=== PATIENT | female | born 1975 | race Caucasian/White ===

== ENCOUNTER 2021-05-11 07:30 | Observation (INO) | payer BC ==
[2021-05-11] MEDS ORDERED: ASPIRIN 81 MG PO STA (07:59)
[2021-05-11 08:00] LABS: Basophils # (A) 0.1 k/uL (0-0.2); Basophils % (A) 1 %; Eosinophils # (A) 0.1 k/uL (0-0.7); Eosinophils % (A) 2 %; HCT 43.4 % (34.0-46.0); HGB 14.5 gm/dL (11.4-16.0); Lymphocytes # (A) 2.1 k/uL (1.0-4.8); Lymphocytes % (A) 32 %; MCH 30.4 pg (25.0-35.0); MCHC 33.4 g/dL (31.0-37.0); MCV 91.1 fL (80.0-100.0); Mean Platelet Volume 7.9; Monocytes # (A) 0.5 k/uL (0-1.0); Monocytes % (A) 7 %; Neutrophils # (A) 3.8 k/uL (1.3-7.7); Neutrophils % (A) 56 %; Platelet Count 256 k/uL (150-450); RBC 4.77 m/uL (3.80-5.40); RDW 13.4 % (11.5-15.5); WBC 6.7 k/uL (3.8-10.6)
--- NOTE | 2021-05-11 08:04 | ED ---
Chest Pain HPI - General Chief Complaint: Chest Pain Stated Complaint: Chest pain Time Seen by Provider: 05/11/21 07:47 Source: patient, RN notes reviewed Mode of arrival: wheelchair Limitations: no limitations - History of Present Illness Initial Comments: This is a 45-year-old female with no prior history of heart disease but does have a history of asthma and is currently smoker who states she had an onset this morning while at work retrosternal chest pain with some right arm hand and leg numbness. He was associated nausea and sweats with it. She states pain was pressure like 5-6/10 in severity and lasted approximately 3 minutes. She states she was walking at her job at the time. She also relates that over the past several months she's had intermittent random episodes similar to this. She currently is symptom free she does states that she has had intermittent swelling to her right lower extremity none at this time. She also states she has strong family history of heart disease with members having heart issues starting at age 49 and 50. No other current complaints or modifying factors MD Complaint: chest pain - Related Data Home Medications Medication Instructions Recorded Confirmed Albuterol Inhaler (Mhu) [Ventolin 2 inhaler INHALATION DAILY PRN 03/20/14 11/23/15 Hfa Inhaler (Mhu)] Multivitamins, Thera [Multivitamin] 1 tab PO DAILY 03/20/14 11/23/15 Previous Rx's Medication Instructions Recorded Ibuprofen [Motrin] 800 mg PO Q6HR PRN #15 tab 03/20/14 Cefdinir [Omnicef] 300 mg PO Q12HR #14 capsule 11/23/15 Ibuprofen [Motrin] 600 mg PO Q8HR PRN #12 tab 11/23/15 Loratadine [Claritin] 10 mg PO DAILY #7 tab 11/23/15 Allergies Allergy/AdvReac Type Severity Reaction Status Date / Time Penicillins Allergy Unknown Verified 05/11/21 07:31 Sulfa (Sulfonamide Allergy Unknown Verified 05/11/21 07:31 Antibiotics) Review of Systems ROS Statement: Those systems with pertinent positive or pertinent negative responses have been documented in the HPI. ROS Other: All systems not noted in ROS Statement are negative. EKG Findings - EKG Results: EKG: interpreted by YENNIFER, WNL, sinus rhythm, normal axis, normal ST/T, no acute changes (Normal sinus rhythm of 82 OH interval 144 QRS duration 82 QT/QTC 42/469) Past Medical History Past Medical History: Asthma Additional Past Medical History / Comment(s): Depression History of Any Multi-Drug Resistant Organisms: None Reported Past Surgical History: Ear Surgery, Orthopedic Surgery, Tubal Ligation Additional Past Surgical History / Comment(s): KNEE SURGERY Past Psychological History: Anxiety, Depression Smoking Status: Current every day smoker Past Alcohol Use History: Occasional Past Drug Use History: None Reported General Exam - General Exam Comments Initial Comments: This is a well-developed well-nourished awake alert oriented 3 female Limitations: no limitations General appearance: alert, anxious Head exam: Present: atraumatic, normocephalic, normal inspection Eye exam: Present: normal appearance, PERRL, EOMI. Absent: scleral icterus, conjunctival injection, periorbital swelling ENT exam: Present: normal exam, mucous membranes moist Neck exam: Present: normal inspection, full ROM, other (Urjuniorbruits). Absent: tenderness, meningismus, lymphadenopathy Respiratory exam: Present: normal lung sounds bilaterally, chest wall tenderness (I'll tenderness on the right costal sternal margin no step-off no crepitation this does not reproduce the patient's stated discomfort). Absent: respiratory distress, wheezes, rales, rhonchi, stridor Cardiovascular Exam: Present: regular rate, normal rhythm, normal heart sounds. Absent: systolic murmur, diastolic murmur, rubs, gallop, clicks GI/Abdominal exam: Present: soft, normal bowel sounds. Absent: distended, tenderness, guarding, rebound, rigid, bruit Extremities exam: Present: normal inspection, full ROM, normal capillary refill. Absent: tenderness, pedal edema, joint swelling, calf tenderness Back exam: Present: normal inspection Neurological exam: Present: alert, oriented X3, CN II-XII intact Psychiatric exam: Present: normal affect, normal mood Skin exam: Present: warm, dry, intact, normal color. Absent: rash Course Vital Signs 05/11/21 07:31 Temperature 98.6 F Pulse Rate 98 Respiratory 16 Rate Blood Pressure 131/92 O2 Sat by Pulse 99 Oximetry Chest Pain MDM - MDM Imaging reviewed evidence of possible early infiltrate however the patient has no symptoms no fever chills sweats cough and the x-ray did appear to be a poor inspiratory effort. Did discuss case the patient is also with Dr. gauthier patient be admitted for cardiology evaluation. Currently she is pain-free Disposition Clinical Impression: Chest pain, Unstable angina pectoris Disposition: ADMITTED IP TO THIS HOSP Condition: Stable Referrals: None,Stated [Primary Care Provider] - 1-2 days
[2021-05-11 08:12] LABS: INR 0.9 (<1.2); Partial Thromboplastin Time 23.7 sec (22.0-30.0); Prothrombin Time 9.9 sec (9.0-12.0)
[2021-05-11 08:16] LABS: ALT 15 U/L (4-34); AST 21 U/L (14-36); African American GFR (CKD) >90 (>60 ml/min/1.73 sqM); Albumin 4.3 g/dL (3.5-5.0); Alkaline Phosphatase 56 U/L (38-126); Anion Gap 8 mmol/L; Blood Urea Nitrogen 10 mg/dL (7-17); Calcium 9.3 mg/dL (8.4-10.2); Carbon Dioxide 26 mmol/L (22-30); Chloride 106 mmol/L (98-107); Creatine Kinase 81 U/L (30-135); Glucose 105 mg/dL (74-99); Magnesium 2.1 mg/dL (1.6-2.3); Non-African American GFR(CKD) 90 (>60 ml/min/1.73 sqM); Potassium 4.1 mmol/L (3.5-5.1); Sodium 140 mmol/L (137-145); Total Bilirubin 0.3 mg/dL (0.2-1.3); Total Protein 6.8 g/dL (6.3-8.2)
--- NOTE | 2021-05-11 08:18 | XR ---
EXAMINATION TYPE: XR chest 2V DATE OF EXAM: 05/11/2021 COMPARISON: 11/23/2015 HISTORY: 45 years Female. STUDY INDICATION GIVEN: Chest pain TECHNIQUE: AP portable chest radiograph FINDINGS AND IMPRESSION: Mild patchy opacities seen in the right lower lobe concerning for developing pneumonia in the right c linical setting. No pneumothorax or pleural effusion. Cardiomediastinal silhouette within normal limits. Osseous structures are unremarkable.
[2021-05-11] MEDS ORDERED: NITROGLYCERIN SL TABS 0.4 MG TAB SUBLINGUAL PRN (09:59)
[2021-05-11] MEDS ORDERED: ALBUTEROL NEBULIZED 2.5 MG/3 ML INHALATION PRN (10:01)
--- NOTE | 2021-05-11 10:16 | P.HPIM ---
History of Present Illness This is a pleasant 45 years old female with no significant past medical history, she has medical insurance but she does not follow up with PCP or other specialists. This is because of chest pain on and off for a few months which wa s more severe today, however when by the time she came to emergency room was 1/10 in severity but associated with numbness of the right arm which was consented for her. Pain is mainly in the left side, nonradiating, not like pressure. She has some nausea but no vomiting. Dyspnea or coughing. No palpitation No GI or urinary symptoms She smokes about half pack per day. No alcohol or illicit tracts She has family history of heart disease, her aunt had heart disease at age 51 her mother from heart disease at age 49 Past Medical History Past Medical History: Asthma Additional Past Medical History / Comment(s): Depression History of Any Multi-Drug Resistant Organisms: None Reported Past Surgical History: Ear Surgery, Orthopedic Surgery, Tubal Ligation Additional Past Surgical History / Comment(s): KNEE SURGERY Past Psychological History: Anxiety, Depression Smoking Status: Current every day smoker Past Alcohol Use History: Occasional Past Drug Use History: None Reported Medications and Allergies Home Medications Medication Instructions Recorded Confirmed Type Multivitamins, Thera [Multivitamin] 1 tab PO DAILY 03/20/14 11/23/15 History Loratadine [Claritin] 10 mg PO DAILY #7 tab 11/23/15 Rx Black Cohosh 1,080 mg PO DAILY 05/11/21 05/11/21 History Allergies Allergy/AdvReac Type Severity Reaction Status Date / Time Penicillins Allergy Unknown Verified 05/11/21 10:11 Sulfa (Sulfonamide Allergy Unknown Verified 05/11/21 10:11 Antibiotics) Physical Exam Vitals: Vital Signs Temp Pulse Resp BP Pulse Ox 05/11/21 07:31 98.6 F 98 16 131/92 99 Intake and Output 05/10/21 05/11/21 05/11/21 22:59 06:59 14:59 Other: Weight 106.594 kg Results CBC & Chem 7: 05/11/21 07:53 05/11/21 07:53 Labs: Abnormal Lab Results - Last 24 Hours (Table) 05/11/21 Range/Units 07:53 Glucose 105 H (74-99) mg/dL Assessment and Plan Assessment: Chest pain, with negative d-dimer. Rule out cardiac causes. With positive family history Continued dependence Morbid obesity with BMI of 40.3 Plan: This is a pleasant 45 years old female who presents with chest pain. Continue with aspirin, check echocardiogram. Consult Labs and medication were reviewed.. Continue same treatment. Continue with sym ptomatic treatment. Resume home medication. Monitor lytes and vitals. DVT and GI prophylaxis. Further recommendationsas per clinical course of the patient DVT prophylaxis: Subcutaneous heparin GI Prophylaxis: Pepcid Prognosis is guarded
[2021-05-11] MEDS: SODIUM CHLORIDE 0.9% 1,000 ML IV SCH ×2 (11:29→21:11)
--- NOTE | 2021-05-11 14:16 | CONS ---
CONSULTATION Mrs. Del Castillo is 45-year-old female with no prior documented coronary artery disease, who presented with numbness in the right side and some chest discomfort. The patient has no prior history of cardiac disease. She is not very active physically. Does not follow with a primary care physician. Denies any palpitation. No dizziness. No syncope. She has occasional peripheral edema. Her numbness has resolved. She has no history of hypertension or diabetes. She smokes about half a pack a day. She has no history of documented hyperlipidemia. MEDICATION: Her medications at home include vitamins. REVIEW OF SYSTEMS: RESPIRATORY SYSTEM: She has occasional wheezing, history of bronchial asthma. GI SYSTEM: No recent GI bleeding. No peptic ulcer disease. SYSTEM: No dysuria or hematuria. NERVOUS SYSTEM: No stroke or seizure. PHYSICAL EXAMINATION: She is a 45-year-old female, alert, oriented, in no apparent distress. Blood pressure running in the 120s with a heart rate in 60s. HEAD: Normocephalic. EYES: Sclerae anicteric. NECK: Good upstroke. No jugular venous distention. LUNGS: Clear to auscultation. HEART: Regular rate and rhythm. S1, S2. No S3. No S4. No murmur or rub. ABDOMEN: Soft, nontender, positive bowel sounds. Obese. No organomegaly. EXTREMITIES: No edema. LAB DATA: Lab data revealed troponin less than 0.012 for two samples, BUN and creatinine 10 and 0.81, potassium 4.1, hemoglobin 14.5. EKG revealed a sinus mechanism, normal axis and intervals, poor R progression. IMPRESSION: 1. Chest discomfort, has atypical features for ischemic heart disease, probably noncardiac in etiology. 2. Chronic tobacco use. RECOMMENDATION: I have recommended to proceed with an echocardiogram, as well as a stress echocardiogram, to evaluate the etiology of her symptoms and guide her treatment. If there is no evidence of inducible ischemia, then no further cardiac workup will be needed. Thank you for this consult. We will follow with you. MMODL / IJN: [id number] /
[2021-05-11 21:17] VITALS: RESP 16
[2021-05-12] MEDS: SODIUM CHLORIDE 0.9% 1,000 ML IV SCH (07:44)
[2021-05-12] MEDS ORDERED: ASPIRIN 325 MG TAB PO SCH (09:00)
[2021-05-12 09:44] LABS: Chol/HDL Ratio 4.33; LDL Cholesterol,Calculated 82.6 mg/dL (0.0-131.0); VLDL Calculation 37.4 mg/dL (5.00-40.00)
--- NOTE | 2021-05-12 09:52 | ECHOF ---
Referral Reason:Chest pain MEASUREMENTS -------- HEIGHT: 162.6 cm WEIGHT: 106.6 kg BP: 114/71 RVIDd: 3.4 cm (< 3.3) IVSd: 1.0 cm (0.6 - 1.1) LVIDd: 5.0 cm (3.9 - 5.3) LVPWd: 1.2 cm (0.6 - 1.1) IVSs: 1.6 cm LVIDs: 3.2 cm LVPWs: 2.0 cm LAESV Index (A-L): 18.86 ml/m Ao Diam: 3.0 cm (2.0 - 3.7) AV Cusp: 2.0 cm (1.5 - 2.6) LA Diam: 3.5 cm (2.7 - 3.8) MV EXCURSION: 13.550 mm (> 18.000) MV EF SLOPE: 90 mm/s (70 - 150) EPSS: 0.9 cm MV E Santi: 1.09 m/s MV DecT: 258 ms MV A Santi: 0.46 m/s MV E/A Ratio: 2.38 RAP: 5.00 mmHg RVSP: 26.50 mmHg FINDINGS -------- Sinus rhythm. This was a technically adequate study. The left ventricular size is normal. Left ventricular wall thickness is normal. Overall left vent ricular systolic function is normal with, an EF between 55 - 60 %. The diastolic filling pattern is normal for the age of the patient 11.00. The right ventricle is mildly enlarged. Normal LA size by volume 22+/-6 ml/m2. The right atrium is mildly enlarged. Interatrial and interventricular septum intact. The aortic valve is trileaflet and appears structurally normal. There is no evidence of aortic regu rgitation. There is no evidence of aortic stenosis. No mitral regurgitation. Mild tricuspid regurgitation present. There is no evidence of pulmonary hypertension. The right v entricular systolic pressure, as measured by Doppler, is 26.50mmHg. There is no pulmonic regurgitation present. The aortic root size is normal. IVC Not well visulized. CONCLUSIONS -------- 1. The left ventricular size is normal. 2. Left ventricular wall thickness is normal. 3. Overall left ventricular systolic function is normal with, an EF between 55 - 60 %. 4. The diastolic filling pattern is normal for the age of the patient 11.00 5. The right ventricle is mildly enlarged. 6. The right atrium is mildly enlarged. 7. Mild tricuspid regurgitation present. SUPERVISOR INCISING: Lupis Schneider RDCS
[2021-05-12 15:09] VITALS: BP 118/73; PULSE 59; TEMP 98.2
--- NOTE | 2021-05-12 16:09 | ECHOS ---
STRESS ECHOCARDIOGRAM DATE: May 12, 2021 INDICATIONS: Chest pain BASELINE HEART RATE: 55 BASELINE BLOOD PRESSURE: 137/89 MAXIMUM HEART RATE: 151 MAXIMUM BLOOD PRESSURE: 163/77 85% MPHR: 150 100% MPHR: 177 METS: 8.7 MAXIMUM STAGE REACHED: II TOTAL EXERCISE TIME: 9 min. STRESS DATA: Pretesting physical examination showed a heart rate of 55, pressure is 137/89 mmHg. Baseline EKG showed sinus mechanism. The patient exercised on the treadmill according to Oz protocol for a total of 9 minutes and achieved 8.7 METS. Max heart rate was 151, which is about 80% of maximum predicted heart rate. Maximum blood pressure was 169/86 mmHg. Clinically, the patient did not have any symptoms, beside the shortness of breath and the EKG did not show any significant ST or T-wave abnormalities concerning for ischemia. ECHOCARDIOGRAM IMAGES: On echocardiogram images from parasternal long axis view, parasternal short axis view, apical 4 chamber and apical 2 chamber were obtained as the baseline images, at the peak of the heart rate as well as on recovery and the echocardiogram images showed good augmentation in the left ventricular systolic function without any evidence of wall motion abnormalities concerning for ischemia. CONCLUSION: 1. Good exercise tolerance. 2. Normal EKG in response to exercise. 3. Normal echocardiogram in response to exercise. MMODL / IJN: [id number] /
--- NOTE | 2021-05-12 23:44 | P.DS ---
Providers Date of admission: 05/11/21 09:59 Attending physician: Reece Holley MD Consults: 05/11/21 09:59 Consult Physician Urgent Consulting Provider: Becky Jensen Consult Reason/Comments: Chest pain Do you want consulting provider notified?: Yes Primary care physician: Stated None Hospital Course: Diagnoses: Chest pain, with negative d-dimer. Patient with negative stress test and chest pain resolved completely upon discharge Nicotine dependence Morbid obesity with BMI of 40.3 Hospital course: This is a pleasant 45 years old female with no significant past medical history, she has medical insurance but she does not follow up with PCP or other specialists. This is because of chest pain on and off for a few months which was more severe on the presentation, Her d-dimer was negative Decorating Inspector recommended stress test which came back negative Patient chest pain completely resolved upon discharge, patient denies any other symptoms on the day of discharge Patient was cleared for discharge by nutrition services aide Problems and management plan were discussed with the patient and he verbalized understanding and acceptance Patient was found stable and can be discharged home however he needs follow-up as an outpatient. Patient was instructed to follow up with PCP within one week and patient agrees Patient was instructed to follow up with nutrition services aide Dr. Hill in 1-2 weeks and she agrees Physical exam Gen: patient is a AAOx3, no distress CVS: S1-S2, RRR, no murmur Lungs: B/L CTA, no wheezing Abdomen: soft, no distention, no tenderness, positive bowel sounds Extremity: no leg edema or induration Time spent more than 35 minutes Patient Condition at Discharge: Stable Plan - Discharge Summary Discharge Rx Participant: Yes New Discharge Prescriptions: Continue Multivitamins, Thera [Multivitamin (formulary)] 1 tab PO DAILY Loratadine [Claritin] 10 mg PO DAILY #7 tab Black Cohosh 1,080 mg PO DAILY Discharge Medication List Multivitamins, Thera [Multivitamin (formulary)] 1 tab PO DAILY 03/20/14 [History] Loratadine [Claritin] 10 mg PO DAILY #7 tab 11/23/15 [Rx] Black Cohosh 1,080 mg PO DAILY 05/11/21 [History] Follow up Appointment(s)/Referral(s): Remberto Curiel MD [REFERRING] - 1 Week Levy Hennessy MD [STAFF PHYSICIAN] - 1 Week (office will call if an appt is needed) None,Stated [Primary Care Provider] - 1-2 days Patient Instructions/Handouts: Angina (DC) Activity/Diet/Wound Care/Special Instructions: Heart healthy diet Activity is limited till you see your doctor Please call your medical insurance provider to find you a Nearby Primary Care Physician. Then call and make an appointment within 1 week Discharge Disposition: HOME SELF-CARE
== END 2021-05-12 15:50 | disposition home or self-care (01) ==
LOC: EC 07:30 → 6NMEDSUR 09:59
PROVIDERS: ADMIT Internal Medicine; ATTEND Internal Medicine
DX: R07.89 Other chest pain (principal); J45.909 Unspecified asthma, uncomplicated; R20.0 Anesthesia of skin; R11.0 Nausea; R61 Generalized hyperhidrosis; F32.9 Major depressive disorder, single episode, unspecified; F41.9 Anxiety disorder, unspecified; E66.01 Morbid (severe) obesity due to excess calories; Z68.41 Body mass index [BMI] 40.0-44.9, adult; F17.210 Nicotine dependence, cigarettes, uncomplicated; Z79.899 Other long term (current) drug therapy; Z88.0 Allergy status to penicillin; Z88.2 Allergy status to sulfonamides; Z98.51 Tubal ligation status; Z98.890 Other specified postprocedural states; Z82.49 Family history of ischemic heart disease and other diseases of the circulatory system
CPT/HCPCS: 93005 ×2; 99285; 36415; 94760; 93306; 93351; 85379; 83880; 80061; 80053; 82550; 83690; 83735; 84484; 85025; 85610; 85730; 84703; 71046; G0378 ×2